=== PATIENT | male | born 1995 | race Caucasian/White ===

== ENCOUNTER 2022-06-19 14:11 | Outpatient (CLI) | payer OTHER, SELFPAY ==
--- NOTE | 2022-06-19 14:28 | XR_ITS ---
WS: [id number] EXAMINATION: XR hand RT 2V [id number] REASON FOR EXAM: CYST/R FINGER PAIN COMPARISON: 05/09/2019. ORDER DATE: 06/19/2022 2:50 PM FINDINGS: Normal PIP and DIP joints. joints. No evidence of acute fracture or dislocation. There is a focal calcification involving the dorsal fifth metacarpal medial to the the metacarpal head and slightly larger compared to 2019 st [facility]. Soft tissue nodule measures approximately 1.5 x 0.6 cm. Radiocarpal joint: Normal. Carpal bones: Normal. XR/XR hand RT 2V [id number] IMPRESSION: 1. Stable soft tissue nodule involving the dorsal right hand soft tissues overl blaze the fifth metacarpal head. 2. Slightly larger calcification in the soft tissue either an ossicle or granul janelle immediately medial to the fifth MCP joint.
== END 2022-06-19 14:12 | disposition home or self-care (01) ==
PROVIDERS: Family Provider Internal Medicine; Visit Provider Nurse Practitioner Family
DX: M79.644 Pain in right finger(s) (principal)
CPT/HCPCS: 73120

== ENCOUNTER 2022-08-23 13:42 | Outpatient (CLI) | payer OTHER, SELFPAY ==
--- NOTE | 2022-08-23 13:56 | MR_ITS ---
WS: [id number] MRI RIGHT HAND without CONTRAST. COMPARISON: Hand radiograph 06/19/2022, 05/09/2019, 01/18/2012 Multiplanar, multisequence imaging is performed without contrast. No acute fractures or marrow signal abnormalities within the hand. There is an abnormal configuration of the fifth metacarpal head. There is a small concave deformity a long the medial most fifth metacarpal head. There is adjacent soft tissue thickening measuring 19 mm which corresponds to a palpable abnormality. Best seen on prior radiographs is a 3 mm osseous density embedded within the soft tissues. This osseous density is displaced from the fifth metacarpal. Simil ar to the prior radiographs. The soft tissue thickening is separate from the abductor digiti minimi. The soft tissue thickening is associated more closely with the extensor digitorum communis and extensor digiti minimi tendons. Due to the long-term appearance of the soft tissue this is probably focal scar tissue from prior tendon injury. This is not a cystic mass and closely follows low signal on the majority of sequences. MR/MR hand RT wo con* [id number] IMPRESSION: 1. Long-term stability of a soft tissue mass closely associated with the fifth metacarpal head. Suspect this may be an area of fibrosis from chronic injury a nd healing involving the extensor digitorum communis and extensor digiti minimi tendons. This soft tissue mass is separate from the abductor digiti minimi. 2. Osseous 3 mm density embedded within the soft tissue mass. This may be a do nor site from an avulsion fracture involving the fifth metacarpal head as there is a defect. These findings have been described since 01/18/2012 and radiograph.
== END 2022-08-23 13:43 | disposition home or self-care (01) ==
LOC: RAD 13:46
PROVIDERS: PCP Nurse Practitioner Family; Visit Provider Student in an Organized Health Care Education/Training Program
DX: M79.641 Pain in right hand (principal)
CPT/HCPCS: 73218

== ENCOUNTER 2022-09-09 04:23 | Emergency (ER) | payer OTHER, SELFPAY ==
[2022-09-09 04:25] VITALS: BP 133/78; PULSE 94; RESP 18; TEMP 37; O2SAT 94; BMI 38.4
--- NOTE | 2022-09-09 04:33 | XRR_ITS ---
PROCEDURE INFORMATION: Exam: XR Chest Exam date and time: 09/09/2022 4:50 AM Age: 27 years old Clinical indication: Other: Seizure; Additional info: [place] TECHNIQUE: Imaging protocol: Radiologic exam of the chest. Views: 1 view. Total images: 642 COMPARISON: No relevant prior studies available. FINDINGS: Lungs: Unremarkable. No consolidation. Pleural spaces: Unremarkable. No pleural effusion. No pneumothorax. Heart/Mediastinum: Unremarkable. No cardiomegaly. Bones/joints: Unremarkable. XR/XR chest 1V portable [id number] IMPRESSION: No acute findings.
--- NOTE | 2022-09-09 04:33 | CTR_ITS ---
PROCEDURE INFORMATION: Exam: CT Head Without Contrast Exam date and time: 09/09/2022 4:56 AM Age: 27 years old Clinical indication: Other: Seizure; Additional info: Sz TECHNIQUE: Imaging protocol: Computed tomography of the head without contrast. Total images: 2 Radiation optimization: All CT scans at this facility use at least one of these dose optimization techniques: automated exposure control; mA and/or kV adjustment per patient size (includes targeted exams where dose is matched to clinical indication); or iterative reconstruction. REPORTING DATA: Count of CT and Cardiac NM exams in prior 12 months: This patient has received 0 known CTs and 0 known cardiac nuclear medicine studies in the 12 months prior to the current study. COMPARISON: No relevant prior studies available. RADIATION DOSE METRICS: Total DLP (mGy-cm): 1333.48 FINDINGS: Brain: Normal. No hemorrhage. Unremarkable white matter. No mass effect. Cerebral ventricles: No ventriculomegaly. Paranasal sinuses: Mild mucosal thickening of the paranasal sinuses. Mastoid air cells: Visualized mastoid air cells are well aerated. Bones/joints: Unremarkable. No acute fracture. Soft tissues: Unremarkable. CT/CT head wo con* [id number] IMPRESSION: No acute intracranial pathology detected.
--- NOTE | 2022-09-09 04:34 | ECG_ITS ---
[facility] Test Date: 2022-09-09 Pat Name: Manohar Gatica Department: Room: Gender: Male Vision Mixer: : 1995 Requested By: Buddy Vaughn Order Number: [id number] Ortiz MD: Jamari Shearer M.D. Measurements Intervals [place] Rate: 90 P: 51 MN: 192 QRS: 40 QRSD: 123 T: 32 QT: 355 QTc: 435 Interpretive Statements SINUS RHYTHM MODERATE INTRAVENTRICULAR CONDUCTION DELAY [110+ ms QRS DURATION] No previous ECG available for comparison Electronically Signed On 09-09-2022 12:25:39 REJECTED ITEMS CLERK by Jamari Shearer M.D. [email or web address].Animal Cell Therapieshighland community hospitalAchieveIt Onlineuniversity hospitals [email or web address].[id number]
[2022-09-09 04:46] LABS: Basophils % 0.2 %; Eosinophils # 0.2 10^3/uL (0.0-0.8); Hematocrit 46.6 % (42.0-52.0); Hemoglobin 15.1 g/dL (11.7-16.6); Lymphocytes # 1.4 10^3/uL (0.8-4.8); Lymphocytes % 14.2 %; Mean Corpuscular HGB Conc 32.4 g/dL (30.0-36.0); Mean Corpuscular Hemoglobin 27.4 pg (28.0-34.0); Mean Corpuscular Volume 84.6 fl (80-94); Mean Platelet Volume 11.5 fL (7.4-10.4); Monocytes # 0.6 10^3/uL (0.2-0.9); Neutrophils # 7.73 10^3/uL (1.8-7.7); Neutrophils % 77.1 %; Nucleated Red Blood Cells % 0 %; Platelet Count 194 10^3/cmm (130-400); Red Blood Count 5.51 10^6/uL (4.1-5.3); Red Cell Distribution Width 12.5 % (12.1-15.1)
[2022-09-09 05:12] LABS: Alanine Aminotransferase 45 U/L (0-41); Albumin Level 4.1 g/dL (3.5-5.2); Alkaline Phosphatase 76 U/L (40-130); Anion Gap 16.7 (5-19); Aspartate Amino Transferase 29 U/L (0-40); Blood Urea Nitrogen 13 mg/dL (6-20); Calcium 9.3 mg/dL (8.5-10.5); Carbon Dioxide 23 mmol/L (22-29); Chloride 102 mmol/L (98-107); Globulin 2.7 g/dL (1.3-4.6); Glomerular Filtration Rate 99.8 mL/min (90-130); Glucose 143 mg/dL (65-115); Magnesium 2.1 mg/dL (1.7-2.3); Osmolality Calculated 289 mOsm/kg (285-295); Phosphorus 2.1 mg/dL (2.5-4.5); Potassium 3.7 mmol/L (3.5-5.1); Sodium 138 mmol/L (136-145); Total Bilirubin 0.5 mg/dL (0.15-1.2); Total Protein 6.8 g/dL (6.6-8.7)
[2022-09-09 05:13] LABS: Alcohol Level < 10 mg/dL (0-10)
[2022-09-09 05:14] LABS: Creatine Phosphokinase 430 U/L (39-308)
[2022-09-09 05:15] VITALS: BP 139/69; PULSE 87; RESP 18; O2SAT 97
[2022-09-09 05:30] VITALS: BP 149/78; PULSE 82; RESP 18; O2SAT 95
--- NOTE | 2022-09-09 06:18 | ED_ITS ---
HPI - Seizure General: Chief Complaint: Seizure Stated Complaint: SEIZURE Time Seen by Provider: 09/09/22 04:32 Source: patient, family and EMS History of Present Illness: HPI Narrative: 27-year-old male with no prior history of seizure disorder. He presents with an acute onset of seizure. He awoke his in bed around 4 this morning with tonic-clonic type movements. His says she believes these lasted around a minute. He was significantly confused afterwards. The patient notes that he remembers a bunch of people I did not know in my bedroom . He felt well when he went to bed. states he has been under quite a bit of stress, but has had no recent illnesses. He had 1 beer last night. No drug use. He has a sister with Friedreich's ataxia and seizure disorder. MD complaint: seizure Onset (ago): minute(s) Description of Episode: loss of consciousness and tonic-clonic movement Duration of episode: 60 -: second(s) Witnessed: Yes - by Bystander Trauma: No Seizure History: No Place: Home Associated symptoms: Reports confusion; Deny chest pain, chills, cough, diaphoresis, fever(s), anorexia or short of breath Treatments prior to arrival: none Review of Systems Const: Denies: fever(s), chills or diaphoresis Eyes: Denies: change in vision ENMT: Denies: throat pain Card: Denies: chest pain Resp: Denies: dyspnea, productive cough or non-productive cough GI: Denies: abdominal pain or vomiting Neuro: Reports: confusion and seizure-like activity; Denies: headache(s) or dizziness [facility] ED PFSH: Medical History Mass of right hand Physical Exam Const: COMMON NORMALS: no acute distress and alert GENERAL APPEARANCE: cooperative and well kempt; not ill appearing and not frail appearing HENMT: COMMON NORMALS: normocephalic, atraumatic and Normal external nose present HEAD & SCALP: normocephalic and atraumatic FACE & SINUS: normal facial exam and face symmetric NOSE: Normal external nose present Eye: COMMON NORMALS: Equal, round and reactive pupils present and EOMs intact bilaterally PUPIL: Yes Equal, round and reactive pupils present Neck/C-Spine: GENERAL: Yes trachea midline Chest: CHEST: Yes Symmetrical chest wall rise Resp: COMMON NORMALS: normal respiratory effort, No retractions, No use of accessory muscles and clear to auscultation bilaterally AUSCULTATION: clear to auscultation bilaterally Cardio: COMMON NORMALS: regular rate and regular rhythm RATE: regular rate RHYTHM: regular rhythm GI: COMMON NORMALS: Normal to inspection, nondistended, normoactive bowel sounds present Extremity: COMMON NORMALS: no pedal edema Neuro: REGINALDO COMA SCALE: document GCS findings [place] coma scale eye opening: Spontaneous Reginaldo coma scale verbal response: Orientated [place] coma scale motor response: Obey commands [place] coma scale total score: 15 SENS ORIUM/ORIENTATION: Yes alert CRANIAL NERVES: Yes CN normal except as noted COORDINATION/BALANCE: [id number]-pg-[id number] test normal and qpju-gk-kkfp test normal SPEECH: speech normal GAIT: Yes Unable to assess gait SENSORY EXAM: Yes extremities (intact) MOTOR EXAM: Pronator motor function not present, Normal motor muscle tone present throughout and No Motor fasciculations present COORDINATION: [id number]-gh-asve test normal and vpmq-ol-[id number] test normal Psych: COMMON NORMALS: mental status grossly normal, cooperative, normal affect and speech normal APPEARANCE: Yes well kempt ATTITUDE: Yes calm SPEECH: Yes normal speech Skin: COMMON NORMALS: no rashes or lesions noted GENERAL SKIN EXAM: no rashes or lesions noted Course Vital Signs: Vital signs: Vital Signs Temperature 98.6 F 09/09/22 04:25 Pulse Rate 82 09/09/22 05:30 Respiratory Rate 18 09/09/22 05:30 Blood Pressure 149/78 09/09/22 05:30 Pulse Oximetry 95 09/09/22 05:30 MDM - Seizure MDM Narrative Medical decision making narrative: Because of consistent story of tonic-clonic episode and generalized seizure witnessed by a health professional, and evidence of tongue contusion from biting, thought appropriate to load the patient with antiepileptic medication. Mother states that the sister, who has seizure disorder, had significant mood changes with Keppra, so fosphenytoin was chosen. He tolerated this well. He is back to baseline. Laboratory does not reveal a cause. Head CT is negative. Chest x-ray is normal. EKG is nonacute. His vitals have been good here. He will need to see a neurologist as an outpatient for further work-up. We will ask our pillowcase turner to help make him an appointment. In the meantime, we will keep him on antiepileptic medication. He knows he is not to drive or operate machinery Lab Data 09/09/22 04:35 09/09/22 04:35 Labs: Radiology Impressions Chest X-Ray 09/09/22 04:33 IMPRESSION: No acute findings. Head CT 09/09/22 04:33 IMPRESSION: No acute intracranial pathology detected. Laboratory Results WBC 10.0 10^3/uL (4.0-10.0) 09/09/22 04:35 RBC 5.51 10^6/uL (4.1-5.3) H 09/09/22 04:35 Hgb 15.1 g/dL (11.7-16.6) 09/09/22 04:35 Hct 46.6 % (42.0-52.0) 09/09/22 04:35 MCV 84.6 fl (80-94) 09/09/22 04:35 MCH 27.4 pg (28.0-34.0) L 09/09/22 04:35 MCHC 32.4 g/dL (30.0-36.0) 09/09/22 04:35 RDW 12.5 % (12.1-15.1) 09/09/22 04:35 Plt Count 194 10^3/cmm (130-400) 09/09/22 04:35 MPV 11.5 fL (7.4-10.4) H 09/09/22 04:35 Neut % (Auto) 77.1 % 09/09/22 04:35 Lymph % (Auto) 14.2 % 09/09/22 04:35 [place] % (Auto) 6.0 % 09/09/22 04:35 Eos % (Auto) 2.0 % 09/09/22 04:35 Baso % (Auto) 0.2 % 09/09/22 04:35 Neut # (Auto) 7.73 10^3/uL (1.8-7.7) H 09/09/22 04:35 Lymph # (Auto) 1.4 10^3/uL (0.8-4.8) 09/09/22 04:35 [place] # (Auto) 0.6 10^3/uL (0.2-0.9) 09/09/22 04:35 Eos # (Auto) 0.2 10^3/uL (0.0-0.8) 09/09/22 04:35 Baso # (Auto) 0.0 10^3/uL (0.0-0.1) 09/09/22 04:35 Nucleated RBC % (auto) 0 % 09/09/22 04:35 Nucleated RBCs # 0.0 /100WBC 09/09/22 04:35 PT 13.50 SECONDS (12.1-14.9) 09/09/22 04:35 INR 1.00 (0.8-1.2) 09/09/22 04:35 APTT 23.0 SECONDS (23.9-36.7) L 09/09/22 04:35 Sodium 138 mmol/L (136-145) 09/09/22 04:35 Potassium 3.7 mmol/L (3.5-5.1) 09/09/22 04:35 Chloride 102 mmol/L (98-107) 09/09/22 04:35 Carbon Dioxide 23 mmol/L (22-29) 09/09/22 04:35 Anion Gap 16.7 (5-19) 09/09/22 04:35 BUN 13 mg/dL (6-20) 09/09/22 04:35 Creatinine 0.9 mg/dL (0.7-1.2) 09/09/22 04:35 GFR Calculation 99.8 mL/min (90-130) 09/09/22 04:35 Glucose 143 mg/dL (65-115) H 09/09/22 04:35 Calculated Osmolality 289 mOsm/kg (285-295) 09/09/22 04:35 Calcium 9.3 mg/dL (8.5-10.5) 09/09/22 04:35 Phosphorus 2.1 mg/dL (2.5-4.5) L 09/09/22 04:35 Magnesium 2.1 mg/dL (1.7-2.3) 09/09/22 04:35 Total Bilirubin 0.5 mg/dL (0.15-1.2) 09/09/22 04:35 AST 29 U/L (0-40) 09/09/22 04:35 ALT 45 U/L (0-41) H 09/09/22 04:35 Alkaline Phosphatase 76 U/L (40-130) 09/09/22 04:35 Creatine Kinase 430 U/L (39-308) H* 09/09/22 04:35 Total Protein 6.8 g/dL (6.6-8.7) 09/09/22 04:35 Albumin 4.1 g/dL (3.5-5.2) 09/09/22 04:35 Globulin 2.7 g/dL (1.3-4.6) 09/09/22 04:35 Urine Color Yellow (Yellow) 09/09/22 04:41 Urine Appearance Clear (CLEAR) 09/09/22 04:41 Urine pH 5 (5-7) 09/09/22 04:41 Ur Specific [place] 1.025 (1.005-1.030) 09/09/22 04:41 Urine Protein Neg (Negative) 09/09/22 04:41 Urine Glucose (UA) Norm (Normal) 09/09/22 04:41 Urine Ketones 1+ (Negative) H 09/09/22 04:41 Urine Blood Trace (Negative) H 09/09/22 04:41 Urine Nitrate Negative (Negative) 09/09/22 04:41 Urine Bilirubin Neg (Negative) 09/09/22 04:41 Urine Urobilinogen Norm mg/dL (Negative) 09/09/22 04:41 Ur Leukocyte Esterase Negative (Negative) 09/09/22 04:41 Urine RBC Rare /hpf (0-2) 09/09/22 04:41 Urine WBC Rare /hpf (0-5) 09/09/22 04:41 Ur Squamous Epith Cells None /hpf (0-5) 09/09/22 04:41 Amorphous Sediment Not Reportable 09/09/22 04:41 Urine Bacteria Trace /hpf (NONE) 09/09/22 04:41 Urine Mucus Trace /hpf 09/09/22 04:41 Urine Opiates Screen Negative ng/mL (Negative) 09/09/22 04:41 Ur Barbiturates Screen Negative ng/mL (Negative) 09/09/22 04:41 Ur Phencyclidine Scrn Negative ng/mL (Negative) 09/09/22 04:41 Ur Amphetamines Screen Negative ng/mL (Negative) 09/09/22 04:41 U Benzodiazepines Scrn Negative ng/mL (Negative) 02/25/23 04:41 Urine Cocaine Screen Negative ng/mL (Negative) 09/09/22 04:41 U Marijuana (THC) Screen Negative ng/mL (Negative) 09/09/22 04:41 Ethyl Alcohol < 10 mg/dL (0-10) 09/09/22 04:35 Discharge Plan Discharge Patient Disposition: Home Clinical Impression: Generalized seizure Condition: Stable Prescriptions: New phenytoin sodium extended 300 mg capsule 300 mg PO DAILY Qty: 30 0RF Discharge Orders: Discharge ED (Routine); Ordered 09/09/22 Ordered By: Buddy aMn Referrals: Kyrie Ibrahim NP [Primary Care Provider] - 1-3 days Patient Instructions: New-Onset Seizure in Adults (ED) Activity Restrictions/Additional Instructions: You should have your phenytoin level drawn in 3 days or so. See your doctor for this. Medication as directed. Return for repeated episodes of seizure or passing out, worsening mental status, vision or language problems, other concerning symptoms. Our pillowcase turner will attempt to make you an appointment with neurology as an outpatient. You should hear from them at the beginning of the week. Coding Level of Care Code ED Import Customer Service Manager for Milton Arshad
[2022-09-09 06:37] LABS: Amphetamines Screen Urine Negative (Negative); Barbiturates Screen Urine Negative (Negative); Benzodiazepines Screen Urine Negative (Negative); Cocaine Screen Urine Negative (Negative); Opiate Screen Urine Negative (Negative); PCP Screen Urine Negative (Negative); THC Screen Urine Negative (Negative)
[2022-09-09 06:49] LABS: Protein Urine Neg (Negative); Specific Gravity, Urine 1.025 (1.005-1.030); Urine Appearance Clear (CLEAR); Urine Color Yellow (Yellow); pH Urine 5 (5-7)
[2022-09-09 06:50] LABS: Add Urine Culture? No; Add Urine Microscopic? YES; Bacteria Urine TRACE /hpf; Bilirubin Urine Neg (Negative); Blood Urine Trace (Negative); Glucose Urine UA Norm (Normal); Ketones Urine 1+ (Negative); Leukocyte Esterase Urine Negative (Negative); Mucus Urine TRACE /hpf; Nitrate Urine Negative (Negative); RBC Urine RARE /hpf (0-2); Urobilinogen Urine Norm (Negative); WBC Urine RARE /hpf (0-5)
--- NOTE | 2022-09-11 15:37 | DCPLANNER ---
Addendum entered by Angelita Maki 10/18/22 14:46: This appointment was rescheduled Addendum entered by Angelita Maki 09/12/22 13:43: Patient has a follow up appointment scheduled for Monday, October 17, 2022 at 12:[address] Godoy at neurology. Clinic will call patient with appointment information. Original Note: mid level project manager had message to schedule a follow up appointment for patient with neurology. mid level project manager sent patients information to the front office staff at neurology. Patients information will be printed and reviewed. Clinic will call patient with appointment information.
== END 2022-09-09 06:46 | disposition home or self-care (01) ==
PROVIDERS: Emergency Provider Emergency Medicine; PCP Nurse Practitioner Family
DX: G40.89 Other seizures (principal)
CPT/HCPCS: 70450; 71045; 80053; 80306; 80307; 81001; 82550; 83735; 84100; 85025; 85610; 85730; 93005; 96365; 99285; Q2009

== ENCOUNTER 2024-06-10 09:16 | Outpatient (CLI) | payer OTHER, SELFPAY ==
--- NOTE | 2024-06-10 09:30 | MR_ITS ---
WS: [id number] MRI HEAD WITHOUT CONTRAST TECHNIQUE: Sagittal T1, T2 axial, T2 axial FLAIR, axial and coronal T1 images, axial susceptibility w eighted imaging, axial diffusion weighted images, and coronal T2 images were obtained. 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 COMPARISON: CT 09/09/2022 FINDINGS: Small ovoid T2 hyperintense lesion in the LEFT posterior parietal lobe measuring approximat chula 9.9 x 11.2 mm. This appears to be subcortical in location with gyral expansion. This is somewhat difficult to evaluate due to small size and location but appears to represent a small subcortical nod ule. No significant surrounding edema. Small amount of internal heterogeneity or nodularity. Differen tial considerations include small neoplasm such as ganglioglioma. Small vascular malformation is an a dditional consideration. Focal cortical dysplasia is less likely. Recommend further evaluation with g adolinium. Some images today are degraded by motion. No evidence of restricted diffusion to suggest acute ischemia. No other suspicious intracranial signa l abnormalities considering motion artifact. Normal posterior fossa. Normal vascular flow voids at th e skull base. No extra-axial fluid collections. Paranasal sinuses are well aerated. Mild mucosal thic kening in the ethmoid air cells. Retention cyst in the LEFT greater than RIGHT maxillary sinuses. Ret ention cyst along the LEFT frontoethmoidal recess. Mastoid air cells are well aerated. Normal posteri or nasopharynx. No hemosiderin on the susceptibly weighted images. Normal optic chiasm and pituitary infundibulum. Temporal lobes and hippocampal formations are normal in appearance. No evidence of mesial temporal sclerosis. No evidence of restricted diffusion to suggest acute ischemia. Ventricular system and basal cisterns are patent. MR/MR head wo con* [id number] IMPRESSION: 1. Ovoid T2 hyperintense lesion in the LEFT parietal lobe which appears subcor tical. Differential considerations include ganglioglioma, DNET, glioma, or poss ibly unusual vascular malformation although no significant hemosiderin to indic ate cavernoma. Less likely focal cortical dysplasia. Recommend further evaluati on with gadolinium. Some images degraded by motion. 2. Temporal lobes and hippocampal formations are normal in appearance. No shanda al temporal sclerosis. 3. No other acute findings. Message LEFT for Katja Godoy MD at 06/10/2024 1:02 PM.
== END 2024-06-10 09:17 | disposition home or self-care (01) ==
LOC: RAD 09:16
PROVIDERS: PCP Family Medicine; Visit Provider Specialist
DX: R94.02 Abnormal brain scan (principal); J34.1 Cyst and mucocele of nose and nasal sinus; G40.309 Generalized idiopathic epilepsy and epileptic syndromes, not intractable, without status epilepticus
CPT/HCPCS: 70551

== ENCOUNTER 2024-07-10 13:06 | Outpatient (CLI) | payer OTHER, SELFPAY ==
--- NOTE | 2024-07-10 13:00 | MR_ITS ---
WS: [id number] MRI HEAD WITH CONTRAST TECHNIQUE: Sagittal T1, T2 axial, T2 axial FLAIR, axial susceptibility weighted imaging, axial diffus ion weighted images, and coronal T2 images were obtained. Pre and post-T1 axial and post T1 coronal i mages. ADC and FSPGR images. CLINICAL INFORMATION: G93.89 - Other specified disorders of brain COMPARISON: 06/10/2024 FINDINGS: No evidence of restricted diffusion to suggest acute ischemia. Previously described T2 hyperintense l esion in the LEFT posterior parietal lobe is not significantly changed in appearance compared to prev ious. This again measures approximately 1.0 x 1.1 cm with associated gyral expansion. Findings suspic ious for small neoplasm. Cortical dysplasia is less likely. No abnormal gadolinium enhancement. No other suspicious intracranial signal abnormalities. Normal posterior fossa. Normal vascular flow v oids at the skull base. No extra-axial fluid collections. Paranasal inflammatory changes with LEFT maxillary sinusitis. Mild mucosal thickening in the mastoid air cells. Normal posterior nasopharynx. No hemosiderin on the susceptibly weighted images. Normal op tic chiasm and pituitary infundibulum. Temporal lobes and hippocampal formations are normal in appear ance. No evidence of mesial temporal sclerosis. Incidental minimal low-lying cerebellar tonsils MR/MR head wo/w con [id number] IMPRESSION: 1. Previously described T2 hyperintense lesion in the LEFT parietal lobe is st able in appearance compared to previous suspicious for small neoplasm. No evide nce of progression. No abnormal gadolinium enhancement.. 2. LEFT maxillary sinusitis. 3. No other significant interval changes
[2024-07-10] MEDS: gadobenate dimeglumine 20 mL vial IV (14:05)
== END 2024-07-10 13:07 | disposition home or self-care (01) ==
LOC: RAD 13:07
PROVIDERS: PCP Family Medicine; Visit Provider Specialist
DX: G93.89 Other specified disorders of brain (principal); J01.00 Acute maxillary sinusitis, unspecified
CPT/HCPCS: 70553

== ENCOUNTER 2024-11-10 15:20 | Outpatient (CLI) | payer OTHER, SELFPAY ==
--- NOTE | 2024-11-10 15:28 | MR_ITS ---
WS: [id number] MRI HEAD WITH CONTRAST TECHNIQUE: Sagittal T1, T2 axial, T2 axial FLAIR, axial susceptibility weighted imaging, axial diffusion weighted images, and coronal T2 images were obtained. Pre and post-T1 axial and post T1 coronal images. ADC and FSPGR images. CLINICAL INFORMATION: BRAIN MASS COMPARISON: 2023 FINDINGS: Previously described T2 hyperintense lesion in the LEFT posterior parietal lobe with gyral expansion unchanged appearance compared to previous. This again measures approximately 1.0 x 1.1 cm. Findings suspicious for small neoplasm. No abnormal gadolinium enhancement. No new suspicious intracranial signal abnormalities. Normal posterior fossa. Normal vascular flow voids at the skull base. No extra- axial fluid collections. Normal posterior nasopharynx. No hemosiderin on the susceptibly weighted images. Normal optic chiasm and pituitary infundibulum. Temporal lobes and hippocampal formations are normal in appearance. Incidental minimal low-lying cerebellar tonsils. Prominent posterior pituitary bright spot just anterior to the normal neurapophysis may represent an incidental small Rathke's cleft cyst or less likely a small hemorrhagic or proteinaceous microadenoma. This measures approximately 5 mm and appears unchanged. Recommend correlation with pituitary function studies. Opacification of the LEFT maxillary sinus with retention cyst or polyps. Small retention cyst or polyp RIGHT maxillary sinus. Slight mucosal thickening RIGHT mastoid tip. Small polyps or retention cyst in the LEFT frontoethmoidal recess. MR/MR head wo/w con [id number] IMPRESSION: 1. Previously described T2 hyperintense lesion in the LEFT posterior parietal lobe is unchanged described above. No abnormal enhancement. Findings remain rahul picious for small glioma and recommend continued surveillance. 2. No other significant changes compared to previous. 3. Tiny 5 mm lesion with increased T1 signal in the posterior pituitary may pr esent a tiny Rathke's cleft cyst or small hemorrhagic or proteinaceous microade noma. Recommend correlation with pituitary function studies. 4. Retention cysts or polyps LEFT greater than RIGHT maxillary sinus.
[2024-11-10] MEDS: gadobenate dimeglumine 20 mL vial IV (16:34)
== END 2024-11-10 15:21 | disposition home or self-care (01) ==
PROVIDERS: PCP Family Medicine; Visit Provider Nurse Practitioner Adult Health
DX: G93.89 Other specified disorders of brain (principal); R93.0 Abnormal findings on diagnostic imaging of skull and head, not elsewhere classified
CPT/HCPCS: 70553

== ENCOUNTER 2025-03-06 12:34 | Outpatient (CLI) | payer OTHER, SELFPAY ==
--- NOTE | 2025-03-06 12:41 | MR_ITS ---
WS: [id number] MRI HEAD WITH CONTRAST TECHNIQUE: Sagittal T1, T2 axial, T2 axial FLAIR, axial susceptibility weighted imaging, axial diffusion weighted images, and coronal T2 images were obtained. Pre and post-T1 axial and post T1 coronal images. ADC and FSPGR images. CLINICAL INFORMATION: BRAIN MASS COMPARISON: MRI 11/10/2024 and 2023 FINDINGS: Previously described T2 hyperintense lesion in the LEFT posterior parietal lobe with gyral expansion unchanged in appearance compared to previous. This again measures approximately 1.0 x 1.1 cm. Findings suspicious for small glioma. Suggestion of a tiny amount of equivocal low-grade central enhancement in this area with vessel crowding although unchanged from previous. Otherwise, no significant enhancement. Otherwise, no new suspicious intracranial signal abnormalities. Incidental minimal low-lying cerebellar tonsils. Prominent posterior pituitary bright spot just anterior to the normal neurapophysis may represent an incidental small Rathke's cleft cyst or less likely a small hemorrhagic or proteinaceous microadenoma unchanged. This measures approximately 5 mm. Recommend correlation with pituitary function studies. Polyploid opacification LEFT maxillary sinus. Mastoid air cells are well aerated. MR/MR head wo/w con [id number] IMPRESSION: 1. Overall no significant changes compared to the prior examination. See discu ssion above
[2025-03-06] MEDS: gadobenate dimeglumine 20 mL vial IV (14:03)
== END 2025-03-06 12:35 | disposition home or self-care (01) ==
LOC: RAD 12:34
PROVIDERS: PCP Family Medicine; Visit Provider Neurological Surgery
DX: G93.89 Other specified disorders of brain (principal)
CPT/HCPCS: 70553